=== PATIENT | male | born 1985 ===

== ENCOUNTER → 2022-01-16 13:38 | Outpatient (BNVA) | payer SELFPAY | PROVIDERS: PCP Nurse Practitioner Family; Visit Provider Nurse Practitioner Family | DX: I10 Essential (primary) hypertension (principal); J30.2 Other seasonal allergic rhinitis; Z76.89 Persons encountering health services in other specified circumstances | CPT/HCPCS: 80053; 80061; 83721 ==

== ENCOUNTER → 2023-01-28 16:24 | Outpatient (BNVA) | payer SELFPAY | PROVIDERS: PCP Nurse Practitioner Family; Visit Provider Nurse Practitioner Family | DX: E78.2 Mixed hyperlipidemia (principal); F41.9 Anxiety disorder, unspecified; I10 Essential (primary) hypertension; B49 Unspecified mycosis; F41.0 Panic disorder [episodic paroxysmal anxiety] | CPT/HCPCS: 80053; 80061; 83721 ==

== ENCOUNTER 2023-04-03 08:48 | Emergency (ER) | payer SELFPAY ==
[2023-04-03 08:58] VITALS: BP 174/102; PULSE 115; RESP 18; TEMP 36.8; O2SAT 99; BMI 31.4
[2023-04-03 09:11] LABS: Basophils % 0.4 %; Eosinophils # 0.6 10^3/uL (0.0-0.8); Eosinophils % 6.3 %; Hematocrit 48.3 % (37-53); Lymphocytes # 3.3 10^3/uL (0.8-4.8); Lymphocytes % 34.7 %; Mean Corpuscular HGB Conc 34.6 g/dL (30-55); Mean Corpuscular Hemoglobin 29.9 pg (27-33); Mean Corpuscular Volume 86.6 fl (82-101); Mean Platelet Volume 9.6 fL (7.4-10.4); Monocytes # 0.9 10^3/uL (0.2-0.9); Neutrophils # 4.69 10^3/uL (1.8-7.7); Neutrophils % 49.2 %; Nucleated Red Blood Cells % 0 %; Platelet Count 271 10^3/cmm (157-399); Red Blood Count 5.58 10^6/uL (3.85-5.65); Red Cell Distribution Width 12.6 % (12.1-15.1); White Blood Count 9.54 10^3/uL (3.29-11.43)
--- NOTE | 2023-04-03 09:19 | W.ED.GENADLT ---
HPI - General Adult General: Chief complaint: General Medical Stated complaint: right side face numbness Time Seen by Provider: 04/03/23 09:00 Source: patient Mode of arrival: ambulatory History of Present Illness: 37-year-old male presents emergency room complaining of difficulty with numbness in the right side of his face last week he had some difficulty sensation and taste on the right side of his tongue he has noticed difficulty closing his mouth when he goes to drink dribbles out the right corner of his mouth he is also noticed little bit of weakness in the right eye. He has some chronic back pain and right shoulder problem but has not had any new weakness or difficulty with speech or swallowing associated with this. No recent head trauma he is not on any long-term anticoagulants. No headache in this timeframe. Onset (ago): day(s) Relieving factors: none Exacerbating factors: none Associated symptoms: Deny chest pain, confusion, cough, diaphoresis, decreased appetite, dyspnea, fevers/chills, headache(s), malaise, nausea, rash, palpitations, seizures, short of breath, syncope, vomiting or weakness Review of Systems Const: Denies: fever(s), chills, malaise or diaphoresis Card: Denies: chest pain, palpitations or syncope Resp: Denies: dyspnea GI: Denies: abdominal pain, nausea or vomiting : Denies: dysuria, urinary frequency or urinary urgency Musc: Reports: back pain and joint pain (Right shoulder); Denies: neck pain Skin/Breast: Denies: rash Neuro: Denies: headache(s) or confusion PFS ED PFSH: Social History Smoking and tobacco/nicotine status: never used tobacco/nicotine Current gender identity: Male Physical Exam Const: COMMON NORMALS: no acute distress GENERAL APPEARANCE: cooperative and comfortable ORIENTATION/CONSCIOUSNESS: Yes awake, Yes oriented to person, Yes oriented to place and Yes oriented to time HENMT: COMMON NORMALS: normocephalic, atraumatic and hearing grossly normal bilaterally HEAD & SCALP: normocephalic and atraumatic Resp: COMMON NORMALS: normal respiratory effort, No retractions, No use of accessory muscles and clear to auscultation bilaterally AUSCULTATION: clear to auscultation bilaterally Cardio: COMMON NORMALS: regular rate, regular rhythm and No murmurs present (Cardio) RATE: regular rate RHYTHM: regular rhythm GI: COMMON NORMALS: Soft to palpation and No hepatosplenomegaly present AUSCULTATION: Yes normoactive bowel sounds PALPATION: Yes Soft to palpation, No Tenderness to palpation present (GI), No Guarding due to palpation present (GI) and Yes No hepatosplenomegaly present Extremity: COMMON NORMALS: normal to inspection, capillary refill normal, no clubbing, cyanosis or edema, no calf tenderness and no pedal edema Neuro: SENSORIUM/ORIENTATION: Yes oriented to person, Yes oriented to place and Yes oriented to time Skin: COMMON NORMALS: no rashes or lesions noted GENERAL SKIN EXAM: no rashes or lesions noted Course Vital Signs: Vital signs: Vital Signs Temperature 98.3 F 04/03/23 08:58 Pulse Rate 70 04/03/23 10:37 Respiratory Rate 18 04/03/23 09:29 Blood Pressure 132/92 04/03/23 10:37 Pulse Oximetry 96 04/03/23 10:37 Oxygen Delivery Me thod Room Air 04/03/23 10:37 [facility] - General Adult Medical Decision Making Patient is nearly 24 hours out from the onset of symptoms 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 There is no significant finding on his CT of his head. He is noticing taste abnormality difficulty closing eye with tearing of the eye as well as drooping of the corner of mouth difficulty with swallowing liquids he has no other ataxias. He does have previous history of back pain and right shoulder pain which causes some functional trouble in those limbs but he has no ataxia there at this time. Medical Records I reviewed the patient's medical records. Lab Data I reviewed the patient's lab results. 04/03/23 09:02 04/03/23 09:02 Laboratory Results WBC 9.54 10^3/uL (3.29-11.43) 04/03/23 09:02 RBC 5.58 10^6/uL (3.85-5.65) 04/03/23 09:02 Hgb 16.70 g/dL (11.27-16.99) 04/03/23 09:02 Hct 48.3 % (37-53) 04/03/23 09:02 MCV 86.6 fl (82-101) 04/03/23 09:02 MCH 29.9 pg (27-33) 04/03/23 09:02 MCHC 34.6 g/dL (30-55) 04/03/23 09:02 RDW 12.6 % (12.1-15.1) 04/03/23 09:02 Plt Count 271 10^3/cmm (157-399) 04/03/23 09:02 MPV 9.6 fL (7.4-10.4) 04/03/23 09:02 Neut % (Auto) 49.2 % 04/03/23 09:02 Lymph % (Auto) 34.7 % 04/03/23 09:02 [place] % (Auto) 9.0 % 04/03/23 09:02 Eos % (Auto) 6.3 % 04/03/23 09:02 Baso % (Auto) 0.4 % 04/03/23 09:02 Neut # (Auto) 4.69 10^3/uL (1.8-7.7) 04/03/23 09:02 Lymph # (Auto) 3.3 10^3/uL (0.8-4.8) 04/03/23 09:02 [place] # (Auto) 0.9 10^3/uL (0.2-0.9) 04/03/23 09:02 Eos # (Auto) 0.6 10^3/uL (0.0-0.8) 04/03/23 09:02 Baso # (Auto) 0.0 10^3/uL (0.0-0.1) 04/03/23 09:02 Nucleated RBC % (auto) 0 % 04/03/23 09:02 Nucleated RBCs # 0.0 /100WBC 04/03/23 09:02 Sodium 140 mmol/L (136-145) 04/03/23 09:02 Potassium 3.7 mmol/L (3.5-5.1) 04/03/23 09:02 Chloride 103 mmol/L (98-107) 04/03/23 09:02 Carbon Dioxide 22 mmol/L (22-29) 04/03/23 09:02 Anion Gap 18.7 (5-19) 04/03/23 09:02 BUN 16 mg/dL (6-20) 04/03/23 09:02 Creatinine 1.4 mg/dL (0.7-1.2) H 04/03/23 09:02 GFR Calculation 57.3 mL/min (90-130) L 04/03/23 09:02 Glucose 103 mg/dL (65-115) 04/03/23 09:02 Calculated Osmolality 291 mOsm/kg (285-295) 04/03/23 09:02 Calcium 9.9 mg/dL (8.5-10.5) 04/03/23 09:02 Total Bilirubin 1.0 mg/dL (0.15-1.2) 04/03/23 09:02 AST 108 U/L (0-40) H 04/03/23 09:02 ALT 79 U/L (0-41) H 04/03/23 09:02 Alkaline Phosphatase 112 U/L (40-130) 04/03/23 09:02 Total Protein 8.4 g/dL (6.6-8.7) 04/03/23 09:02 Albumin 4.9 g/dL (3.5-5.2) 04/03/23 09:02 Globulin 3.5 g/dL (1.3-4.6) 04/03/23 09:02 All radiology interpretation(s) finalized by discharge Discharge Plan Discharge Patient Disposition: Home Clinical Impression: Urban's palsy Condition: Stable Prescriptions: New prednisone 50 mg tablet 50 mg PO DAILY 7 Days Qty: 7 0RF No Action atorvastatin 40 mg tablet 40 mg PO .QHS 90 Days Qty: 90 1RF albuterol sulfate [Ventolin HFA] 90 mcg/actuation HFA aerosol inhaler 2 puff inhalation 6XD PRN (Reason: shortness of breath or wheezing) Qty: 8.5 5RF budesonide-formoterol [Symbicort] 160-4.5 mcg/actuation HFA aerosol inhaler 2 puff inhalation BID Qty: 10.2 6RF cetirizine [Zyrtec] 10 mg tablet 10 mg PO DAILY 90 Days Qty: 90 1RF losartan 50 mg tablet 50 mg PO DAILY 30 Days Qty: 30 3RF topiramate [Topamax] 25 mg tablet 25 mg PO BID 30 Days Qty: 60 3RF rizatriptan [Maxalt-MACHINE TOOL MECHANIC] 10 mg tablet,disintegrating See Rx Instructions PO .COMPLEX Qty: 10 3RF Rx Instructions: take 1 tab at onset of headache; if no relief may repeat 1 tab after at least 2 hrs; max = 3 tabs/24 hr PO Discharge Orders: Discharge ED (Routine); Ordered 04/03/23 Ordered By: Stanislav Romo Referrals: Marlena Chapa FENCE INSTALLER [Primary Care Provider] - Discharge Diet: Usual diet Discharge Activity: Increase activity as tolerated Patient Instructions: Urban Palsy (ED), Opioid Safety, Pain Management Coding Level of Care Code ED Process Consultant for Chg Fwd NIH stroke score NIHSS Level Of Consciousness - 1a: 0 Level Of Consciousness Questions - 1b: Both Correct Level Of Consciousness Commands - 1c: Both Correct Best Gaze - 2: Normal Visual Shaffer - 3: No Visual Loss Facial Palsy - 4: Minor Paralysis Motor Arm Right - 5: No Drift Motor Arm Left - 5: No Drift Motor Leg Right - 6: No Drift Motor Leg Left - 6: No Drift Limb Ataxia - 7: Absent Sensory - 8: Mild To Moderate Loss Best Language - 9: No Aphasia Dysarthia - 10: Normal Extinction And Inattention - 11: 0 Score Total Score: 2
[2023-04-03 09:29] VITALS: BP 174/102; PULSE 99; RESP 18; O2SAT 98
--- NOTE | 2023-04-03 09:41 | CT_ITS ---
WS: [id number] CT HEAD TECHNIQUE: Noncontrast CT of the head obtained from the skullbase to the vertex. CLINICAL INFORMATION: Right facial weakness COMPARISON: None. DLP: 1041.[address] scans at [facility] use at least one of these dose optimization techniques: automated e xposure control; mA and/or kV adjustment per patient size (includes targeted exams where dose is matc hed to clinical indication); or iterative reconstruction. FINDINGS: No evidence of intracranial hemorrhage or mass effect. Ventricular system and basal cisterns are huddleston nt. No extra-axial fluid collections. No evidence of mass or mass effect. Normal cowan-white different iation. Ethmoid sinusitis. Mastoid air cells are well aerated. IMPRESSION: 1. No evidence of intracranial hemorrhage or mass effect. 2. Ethmoid sinusitis. Mastoid air cells well aerated. 3. No acute intracranial findings.
[2023-04-03 09:55] LABS: Alanine Aminotransferase 79 U/L (0-41); Albumin Level 4.9 g/dL (3.5-5.2); Alkaline Phosphatase 112 U/L (40-130); Anion Gap 18.7 (5-19); Aspartate Amino Transferase 108 U/L (0-40); Blood Urea Nitrogen 16 mg/dL (6-20); Calcium 9.9 mg/dL (8.5-10.5); Carbon Dioxide 22 mmol/L (22-29); Chloride 103 mmol/L (98-107); Globulin 3.5 g/dL (1.3-4.6); Glomerular Filtration Rate 57.3 mL/min (90-130); Glucose 103 mg/dL (65-115); Osmolality Calculated 291 mOsm/kg (285-295); Potassium 3.7 mmol/L (3.5-5.1); Sodium 140 mmol/L (136-145); Total Protein 8.4 g/dL (6.6-8.7)
[2023-04-03 10:37] VITALS: BP 132/92; PULSE 70; O2SAT 96
[2023-04-03 11:11] VITALS: BP 116/76; PULSE 66; O2SAT 96
== END 2023-04-03 11:12 | disposition home or self-care (01) ==
PROVIDERS: Emergency Provider Family Medicine; PCP Nurse Practitioner Family
DX: G51.0 Bell's palsy (principal)
CPT/HCPCS: 36415; 70450; 80053; 85025; 99284

== ENCOUNTER 2023-10-28 05:56 | Outpatient (CLI) | payer SELFPAY ==
--- NOTE | 2023-10-28 06:15 | US_ITS ---
WS: [id number] Scrotal and testicular ultrasound, 10/28/2023 Clinical Data: left testicular lump pain and swelling x 1 year Comparison: None. Findings: The right testes measures 2.3 cm x 4.6 cm x 3.1 cm. The left testes measures 4.3 cm x 3.1 cm x 2.6 cm. There is normal bilateral blood flow with no evidence of orchitis or torsion. No masses or abnormal c alcifications are noted. Smooth testicular echotexture is seen bilaterally. There is a small left spermatocele and hydrocele. The left epididymis shows minimal apical epididymit is. The right epididymis is normal. US/US scrotum [id number] Impression: 1. Small left spermatocele and hydrocele. 2. Minimal left epididymitis.
== END 2023-10-28 05:57 | disposition home or self-care (01) ==
LOC: RAD 05:56
PROVIDERS: PCP Nurse Practitioner Family; Visit Provider Nurse Practitioner Family
DX: N50.89 Other specified disorders of the male genital organs (principal); N50.812 Left testicular pain
CPT/HCPCS: 76870

== ENCOUNTER 2024-01-03 12:58 | Emergency (ER) | payer SELFPAY ==
[2024-01-03 13:05] VITALS: BP 173/83; PULSE 81; RESP 16; TEMP 36.7; O2SAT 99; BMI 29.1
--- NOTE | 2024-01-03 14:33 | CTR_ITS ---
PROCEDURE INFORMATION: Exam: CT Head Without Contrast Exam date and time: 01/03/2024 3:24 PM Age: 38 years old Clinical indication: Injury or trauma; Fall; Blunt trauma (contusions or hematomas); With loss of consciousness; Not specified TECHNIQUE: Imaging protocol: Computed tomography of the head without contrast. Radiation optimization: All CT scans at this facility use at least one of these dose optimization techniques: automated exposure control; mA and/or kV adjustment per patient size (includes targeted exams where dose is matched to clinical indication); or iterative reconstruction. COMPARISON: CT head wo con* [id number] 04/03/2023 10:01 AM RADIATION DOSE METRICS: Total DLP (mGy-cm): 1174.8 FINDINGS: Brain: Normal. No hemorrhage. Unremarkable white matter. No mass effect. Cerebral ventricles: No ventriculomegaly. Paranasal sinuses: Mucosal thickening of the ethmoid sinuses. No fluid levels. Mastoid air cells: Visualized mastoid air cells are well aerated. Bones: Unremarkable. No acute fracture. Soft tissues: Unremarkable. CT/CT head wo con* [id number] IMPRESSION: No acute intracranial abnormality.
--- NOTE | 2024-01-03 14:33 | CTR_ITS ---
PROCEDURE INFORMATION: Exam: CT Cervical Spine Without Contrast Exam date and time: 01/03/2024 3:24 PM Age: 38 years old Clinical indication: Injury or trauma; Fall; Blunt trauma TECHNIQUE: Imaging protocol: Computed tomography of the cervical spine without contrast. Radiation optimization: All CT scans at this facility use at least one of these dose optimization techniques: automated exposure control; mA and/or kV adjustment per patient size (includes targeted exams where dose is matched to clinical indication); or iterative reconstruction. COMPARISON: CT head wo con* [id number] 01/03/2024 3:24 PM RADIATION DOSE METRICS: Total DLP (mGy-cm): 1178.4 FINDINGS: Bones: No acute fracture. Normal alignment. No significant disc bulge or herniation. No severe spinal canal stenosis. No significant neural foraminal narrowing. Lungs: Lung apices are normal. Soft tissues: Unremarkable. CT/CT cervical spin wo con* [id number] IMPRESSION: No acute findings.
[2024-01-03 14:36] VITALS: BP 145/100; PULSE 64; RESP 16; O2SAT 99
--- NOTE | 2024-01-03 14:46 | ED_ITS ---
HPI - Fall 2 General: Chief Complaint: Fall Stated Complaint: fell 12 feet of a ladder, neck & wrist pain Time Seen by Provider: 01/03/24 14:28 History of Present Illness: 38-year-old male presents to the emergen cy room complaining of a fall. 2 days ago he fell off of about a 12 foot ladder he hit his head he states he was unconscious for a few seconds put a brace on his right wrist where he had tried to break his fall. Also complaining of pain in his left calf. He has some neck pain as well as neck pain is progressive and worsening has not had any vomiting no change in vision no radiation of pain into his arms from the neck. Associated symptoms-after fall: Denies abdominal pain, chest pain or neck pain Related Data Previous Rx's Medication Instructions Recorded cetirizine 10 mg tablet (Zyrtec) 10 mg PO DAILY 90 days #90 tabs 01/28/23 albuterol sulfate 90 mcg/actuation 2 puff inhalation 6XD PRN 09/11/23 aerosol inhaler (Ventolin HFA) shortness of breath or wheezing #8.5 grams atorvastatin 40 mg tablet 40 mg PO .QHS 90 days #90 tabs 09/11/23 budesonide-formoterol HFA 160 2 puff inhalation BID #10.2 grams 09/11/23 mcg-4.5 mcg/actuation aerosol inhaler (Symbicort) fluconazole 150 mg tablet 150 mg PO DAILY 7 days #7 tabs 09/11/23 losartan 50 mg tablet 50 mg PO DAILY 90 days #30 tabs 09/11/23 prednisone 50 mg tablet 50 mg PO DAILY 7 days #7 tabs 09/11/23 rizatriptan 10 mg disintegrating See Rx Instructions PO .COMPLEX 09/11/23 tablet (Maxalt-BEDSPREAD SEAMER) #10 tabs topiramate 25 mg tablet (Topamax) 25 mg PO BID 90 days #180 tabs 09/11/23 sulfamethoxazole 800 1 tab PO BID 10 days #20 tabs 10/28/23 mg-trimethoprim 160 mg tablet (Bactrim DS) diclofenac sodium 75 mg 75 mg PO Q12H PRN pain #20 tabs 01/03/24 tablet,delayed release prednisone 20 mg tablet 20 mg PO TID #15 tabs 01/03/24 tizanidine 4 mg tablet 4 mg PO Q6H PRN muscle spasticity 01/03/24 #20 tabs Allergies Allergy/AdvReac Type Severity Reaction Status Date / Time lisinopril Allergy ADR-Cough Verified 01/03/24 13:14 Review of Systems 2 Const: Denies: fever(s) or chills Card: Denies: chest pain Resp: Denies: dyspnea GI: Denies: abdominal pain : Denies: dysuria, urinary frequency or urinary urgency Musc: Denies: neck pain or back pain Skin/Breast: Denies: rash PFSH ED 2 PFSH: Social History Smoking and tobacco/nicotine status: never used tobacco/nicotine Current gender identity: Male Physical Exam 2 Const: COMMON NORMALS: no acute distress GENERAL APPEARANCE: cooperative and comfortable ORIENTATION/CONSCIOUSNESS: Yes awake, Yes oriented to person, Yes oriented to place and Yes oriented to time HENMT: COMMON NORMALS: normocephalic, atraumatic and hearing grossly normal bilaterally HEAD & SCALP: normocephalic and atraumatic Resp: COMMON NORMALS: normal respiratory effort, No retractions, No use of accessory muscles and clear to auscultation bilaterally AUSCULTATION: clear to auscultation bilaterally Cardio: COMMON NORMALS: regular rate, regular rhythm and No murmurs present (Cardio) RATE: regular rate RHYTHM: regular rhythm GI: COMMON NORMALS: Soft to palpation and No hepatosplenomegaly present A USCULTATION: Yes normoactive bowel sounds PALPATION: Yes Soft to palpation, No Tenderness to palpation present (GI), No Guarding due to palpation present (GI) and Yes No hepatosplenomegaly present Extremity: COMMON NORMALS: normal to inspection, capillary refill normal, no clubbing, cyanosis or edema, no calf tenderness and no pedal edema OTHER: Right wrist is in a brace neurovascular hand is intact Left calf mildly swollen not indurated painful to palpation Achilles tendon palpably intact no obvious deformity of the knee or ankle no pain at the near the ankle with passive range of motion Movement in the hips bilaterally is normal movement at the knees bilaterally is normal at the ankles is also normal bilaterally. Did not move the right wrist the right elbow which shoulder left elbow and shoulder and left wrist were all normal to range of motion passively and actively. Neurovascularly intact bilaterally in the upper extremities Neuro: SENSORIUM/ORIENTATION: Yes oriented to person, Yes oriented to place and Yes oriented to time Skin: COMMON NORMALS: no rashes or lesions noted GENERAL SKIN EXAM: no rashes or lesions noted Course 2 Vital Signs: Vital signs: Vital Signs Temperature 98.0 F 01/03/24 13:05 Pulse Rate 78 01/03/24 15:51 Respiratory Rate 16 01/03/24 15:51 Blood Pressure 123/99 01/03/24 15:51 Pulse Oximetry 98 01/03/24 15:51 Oxygen Delivery Me thod Room Air 01/03/24 15:51 MDM - Fall Medical Decision Making Imaging shows no acute fractures. Soft tissue ultrasound of the gastrocnemius muscle does not show significant fluid collection. Clinically I do believe he tore part of the gastroc muscle just based on his exam and symptom report. No other fractures head CT and cervical spine right wrist all negative. Discharge patient home with diclofenac steroid taper to begin tomorrow and tizanidine to use as needed. Medical Records I reviewed the patient's medical records. Lab Data I reviewed the patient's lab results. 01/03/24 14:51 01/03/24 14:51 Radiology Impressions Cervical Spine CT 01/03/24 14:33 IMPRESSION: No acute findings. Head CT 01/03/24 14:33 IMPRESSION: No acute intracranial abnormality. Soft Tissue Ultrasound 01/03/24 14:48 IMPRESSION: No fluid collection of the lateral LEFT knee. This study is not sufficient to exclude gastrocnemius tear. Wrist X-Ray 01/03/24 14:48 IMPRESSION: No acute abnormality. Laboratory Results WBC 8.97 10^3/uL (3.29-11.43) 01/03/24 14:51 RBC 4.89 10^6/uL (3.85-5.65) 01/03/24 14:51 Hgb 14.90 g/dL (11.27-16.99) 01/03/24 14:51 Hct 42.1 % (37-53) 01/03/24 14:51 MCV 86.1 fl (82-101) 01/03/24 14:51 MCH 30.5 pg (27-33) 01/03/24 14:51 MCHC 35.4 g/dL (30-55) 01/03/24 14:51 RDW 12.9 % (12.1-15.1) 01/03/24 14:51 Plt Count 223 10^3/cmm (157-399) 01/03/24 14:51 MPV 10.2 fL (7.4-10.4) 01/03/24 14:51 Neut % (Auto) 54.2 % 01/03/24 14:51 Lymph % (Auto) 33.1 % 01/03/24 14:51 [place] % (Auto) 7.9 % 01/03/24 14:51 Eos % (Auto) 3.8 % 01/03/24 14:51 Baso % (Auto) 0.6 % 01/03/24 14:51 Neut # (Auto) 4.86 10^3/uL (1.8-7.7) 01/03/24 14:51 Lymph # (Auto) 3.0 10^3/uL (0.8-4.8) 01/03/24 14:51 [place] # (Auto) 0.7 10^3/uL (0.2-0.9) 01/03/24 14:51 Eos # (Auto) 0.3 10^3/uL (0.0-0.8) 01/03/24 14:51 Baso # (Auto) 0.1 10^3/uL (0.0-0.1) 01/03/24 14:51 Nucleated RBC % (auto) 0 % 01/03/24 14:51 Nucleated RBCs # 0.0 /100WBC 01/03/24 14:51 Sodium 142 mmol/L (136-145) 01/03/24 14:51 Potassium 3.9 mmol/L (3.5-5.1) 01/03/24 14:51 Chloride 106 mmol/L (98-107) 01/03/24 14:51 Carbon Dioxide 24 mmol/L (22-29) 01/03/24 14:51 Anion Gap 15.9 (5-19) 01/03/24 14:51 BUN 10 mg/dL (6-20) 01/03/24 14:51 Creatinine 1.0 mg/dL (0.7-1.2) 01/03/24 14:51 GFR Calculation 84.1 mL/min (90-130) L 01/03/24 14:51 Glucose 87 mg/dL (65-115) 01/03/24 14:51 Calculated Osmolality 292 mOsm/kg (285-295) 01/03/24 14:51 Calcium 9.2 mg/dL (8.5-10.5) 01/03/24 14:51 Total Bilirubin 0.3 mg/dL (0.15-1.2) 01/03/24 14:51 AST 16 U/L (0-40) 01/03/24 14:51 ALT 24 U/L (0-41) 01/03/24 14:51 Alkaline Phosphatase 108 U/L (40-130) 01/03/24 14:51 Total Protein 7.1 g/dL (6.6-8.7) 01/03/24 14:51 Albumin 4.3 g/dL (3.5-5.2) 01/03/24 14:51 Globulin 2.8 g/dL (1.3-4.6) 01/03/24 14:51 Urine Color Yellow (Yellow) 01/03/24 15:03 Urine Appearance Clear (CLEAR) 01/03/24 15:03 Urine pH 5 (5-7) 01/03/24 15:03 Ur Specific [place] 1.020 (1.005-1.030) 01/03/24 15:03 Urine Protein Neg (Negative) 01/03/24 15:03 Urine Glucose (UA) Norm (Normal) 01/03/24 15:03 Urine Ketones Negative (Negative) 01/03/24 15:03 Urine Blood Neg (Negative) 01/03/24 15:03 Urine Nitrate Negative (Negative) 01/03/24 15:03 Urine Bilirubin Neg (Negative) 01/03/24 15:03 Urine Urobilinogen Norm mg/dL (Negative) 01/03/24 15:03 Ur Leukocyte Esterase Negative (Negative) 01/03/24 15:03 Amorphous Sediment Not Reportable 01/03/24 15:03 All radiology interpretation(s) finalized by discharge Discharge Plan Discharge Patient Disposition: Home Clinical Impression: Fall, Acute neck pain, Right wrist sprain Condition: Stable Prescriptions: New tizanidine 4 mg tablet 4 mg PO Q6H PRN (Reason: muscle spasticity) Qty: 20 0RF Rx Instructions: do not exceed 3 doses per 24 hrs prednisone 20 mg tablet 20 mg PO TID Qty: 15 0RF Rx Instructions: 1 p.o. 3 times daily x3 days, 1 p.o. twice daily x2 days, 1 p.o. daily x2 days diclofenac sodium 75 mg tablet,delayed release (DR/EC) 75 mg PO Q12H PRN (Reason: pain) Qty: 20 0RF No Action cetirizine [Zyrtec] 10 mg tablet 10 mg PO DAILY 90 Days Qty: 90 1RF albuterol sulfate [Ventolin HFA] 90 mcg/actuation HFA aerosol inhaler 2 puff inhalation 6XD PRN (Reason: shortness of breath or wheezing) Qty: 8.5 11RF atorvastatin 40 mg tablet 40 mg PO .QHS 90 Days Qty: 90 3RF budesonide-formoterol [Symbicort] 160-4.5 mcg/actuation HFA aerosol inhaler 2 puff inhalation BID Qty: 10.2 11RF losartan 50 mg tablet 50 mg PO DAILY 90 Days Qty: 30 3RF rizatriptan [Maxalt-BEDSPREAD SEAMER] 10 mg tablet,disintegrating See Rx Instructions PO .COMPLEX Qty: 10 5RF Rx Instructions: take 1 tab at onset of headache; if no relief may repeat 1 tab after at least 2 hrs; max = 3 tabs/24 hr PO topiramate [Topamax] 25 mg tablet 25 mg PO BID 90 Days Qty: 180 3RF prednisone 50 mg tablet 50 mg PO DAILY 7 Days Qty: 7 0RF fluconazole 150 mg tablet 150 mg PO DAILY 7 Days Qty: 7 0RF sulfamethoxazole-trimethoprim [Bactrim DS] 800-160 mg tablet 1 tab PO BID 10 Days Qty: 20 0RF Discharge Orders: Discharge ED (Routine); Ordered 01/03/24 Ordered By: Stanislav Romo Referrals: Marlena Chapa NP [Primary Care Provider] - Discharge Diet: Usual diet Discharge Activity: Increase activity as tolerated Patient Instructions: Opioid Safety, Pain Management Activity Restrictions/Additional Instructions: Thank you for choosing [facility] for your healthcare needs today. It is very important that you follow up as instructed or that you return to the Emergency Department should you have concerns or if your condition changes or worsens in any way. You were seen in the emergency room after a fall from a ladder. CT of your head and neck were negative x-ray of your right wrist and ultrasound of your left calf also did not show significant abnormalities. Based on your exam and your report of symptoms suspect you did have a partial tear of the gastrocnemius muscle in the left leg. The remainder the aches and joint pain are likely due from the fall but there does not appear to be any fracture on any of the imaging. Can use the medicines given for relief of symptoms. Would start a prednisone taper and take daily as prescribed until gone beginning tomorrow. Coding Level of Care Code ED Tan Room Supervisor for Belen Mayfield
--- NOTE | 2024-01-03 14:48 | XR_ITS ---
WS: [id number] XR wrist RT min 3V* [id number] REASON FOR EXAM: trauma FINDINGS: No acute fracture identified. The joint spaces of the right wrist are intact and well preserved. No soft tissue abnormality. XR/XR wrist RT min 3V* [id number] IMPRESSION: No acute abnormality.
--- NOTE | 2024-01-03 14:48 | US_ITS ---
WS: [id number] ULTRASOUND SOFT TISSUES LEFT knee HISTORY: L calf - gastroc tear? COMPARISON: None available. TECHNIQUE: 2-D and color Doppler imaging is submitted. Ultrasound is directed over the lateral LEFT knee. There is no fluid collection. There are no images submitted that demonstrate the gastrocnemius muscles or tendons. US/US soft tissue/extremity [id number] IMPRESSION: No fluid collection of the lateral LEFT knee. This study is not sufficient to e xclude gastrocnemius tear.
[2024-01-03 14:56] LABS: Basophils # 0.1 10^3/uL (0.0-0.1); Basophils % 0.6 %; Eosinophils # 0.3 10^3/uL (0.0-0.8); Eosinophils % 3.8 %; Hematocrit 42.1 % (37-53); Lymphocytes % 33.1 %; Mean Corpuscular HGB Conc 35.4 g/dL (30-55); Mean Corpuscular Hemoglobin 30.5 pg (27-33); Mean Corpuscular Volume 86.1 fl (82-101); Mean Platelet Volume 10.2 fL (7.4-10.4); Monocytes # 0.7 10^3/uL (0.2-0.9); Monocytes % 7.9 %; Neutrophils # 4.86 10^3/uL (1.8-7.7); Neutrophils % 54.2 %; Nucleated Red Blood Cells % 0 %; Platelet Count 223 10^3/cmm (157-399); Red Blood Count 4.89 10^6/uL (3.85-5.65); Red Cell Distribution Width 12.9 % (12.1-15.1); White Blood Count 8.97 10^3/uL (3.29-11.43)
[2024-01-03 15:13] LABS: Alanine Aminotransferase 24 U/L (0-41); Albumin Level 4.3 g/dL (3.5-5.2); Alkaline Phosphatase 108 U/L (40-130); Anion Gap 15.9 (5-19); Aspartate Amino Transferase 16 U/L (0-40); Blood Urea Nitrogen 10 mg/dL (6-20); Calcium 9.2 mg/dL (8.5-10.5); Carbon Dioxide 24 mmol/L (22-29); Chloride 106 mmol/L (98-107); Creatinine Clr Calc Pharmacy 130.2527; Globulin 2.8 g/dL (1.3-4.6); Glomerular Filtration Rate 84.1 mL/min (90-130); Glucose 87 mg/dL (65-115); Osmolality Calculated 292 mOsm/kg (285-295); Potassium 3.9 mmol/L (3.5-5.1); Sodium 142 mmol/L (136-145); Total Bilirubin 0.3 mg/dL (0.15-1.2); Total Protein 7.1 g/dL (6.6-8.7)
[2024-01-03 15:18] LABS: Add Urine Microscopic? NO
[2024-01-03 15:29] LABS: Bilirubin Urine Neg (Negative); Blood Urine Neg (Negative); Charge for UA Resulting for Rev; Glucose Urine UA Norm (Normal); Ketones Urine Negative (Negative); Leukocyte Esterase Urine Negative (Negative); Nitrate Urine Negative (Negative); Protein Urine Neg (Negative); Urine Appearance Clear (CLEAR); Urine Color Yellow (Yellow); Urobilinogen Urine Norm (Negative); pH Urine 5 (5-7)
[2024-01-03 15:51] VITALS: BP 123/99; PULSE 78; RESP 16; O2SAT 98
[2024-01-03] MEDS: ketorolac 60 mg/2 mL INJ IM (16:46)
[2024-01-03] MEDS: dexamethasone 10 mg/mL INJ IM (16:47)
[2024-01-03] MEDS: orphenadrine 30 mg/mL Inj 2 mL 60 MG IM (16:50)
[2024-01-03 17:06] VITALS: BP 128/90; PULSE 63; RESP 16; O2SAT 99
== END 2024-01-03 17:08 | disposition home or self-care (01) ==
PROVIDERS: Emergency Provider Family Medicine; PCP Nurse Practitioner Family
DX: M54.2 Cervicalgia (principal); S63.501A Unspecified sprain of right wrist, initial encounter; W11.XXXA Fall on and from ladder, initial encounter
CPT/HCPCS: 36415; 70450; 72125; 73110; 76882; 80053; 81003; 85025; 96372; 99284; J1100; J1885; J2360